=== PATIENT | female | born 1980 | race Caucasian/White ===

== ENCOUNTER 2019-01-27 00:39 | Outpatient (CLI) | payer BC ==
[~2019-01-27] VITALS: Ht 175.3 cm; Wt 78.2 kg
[2019-01-27 01:12] VITALS: BP 111/63
== END 2019-01-27 01:55 | disposition home or self-care (01) ==
LOC: LDOP 00:39
PROVIDERS: ATTEND Obstetrics & Gynecology
DX: O09.523 Supervision of elderly multigravida, third trimester (principal); O62.9 Abnormality of forces of labor, unspecified; Z3A.40 40 weeks gestation of pregnancy
CPT/HCPCS: 59025; 82962; 99201; G0463

== ENCOUNTER 2019-01-27 08:05 | Inpatient (IN) | payer BC ==
[~2019-01-27] VITALS: Ht 175.3 cm; Wt 78.2 kg
[2019-01-27] MEDS ORDERED: NEWBORN KIT ONE (08:09)
[2019-01-27] MEDS ORDERED: MISOPROSTOL 200 MCG TABLET ONE (08:09)
[2019-01-27] MEDS ORDERED: OXYTOCIN 10 UNITS/ML, 1ML ONE (08:09)
[2019-01-27] MEDS ORDERED: OXYTOCIN 30U/ 0.9% NaCL 500ML 500 ML ONE ×2 (08:14→09:50)
[2019-01-27] MEDS ORDERED: OXYTOCIN 30U/ 0.9% NaCL 500ML 500 ML IV ONE (08:17)
[2019-01-27] MEDS ORDERED: LACTATED RINGERS 1,000 ML IV SCH (08:17)
[2019-01-27] MEDS ORDERED: D5%-LACTATED RINGERS 1,000 ML IV SCH (08:17)
[2019-01-27] MEDS ORDERED: TERBUTALINE 1 MG/ML, 1ML IVPush PRN (08:30)
[2019-01-27] MEDS ORDERED: TERBUTALINE 1 MG/ML, 1ML SQ PRN (08:30)
[2019-01-27 08:45] LABS: BASOPHILS # (AUTO) 0.04 x10^3/uL (0-0.1); BASOPHILS % (AUTO) 1 % (0-1); EOSINOPHILS # (AUTO) 0.01 x10^3/uL (0-0.4); EOSINOPHILS % (AUTO) 0 % (1-7); LYMPHOCYTES # (AUTO) 0.73 x10^3/uL (1-3.4); LYMPHOCYTES % (AUTO) 9 % (22-44); MD NO; MEAN CORPUSCULAR HEMOGLOBIN 30.9 pg (27.0-34.8); MEAN CORPUSCULAR HGB CONC 33.5 g/dL (32.4-35.8); MEAN CORPUSCULAR VOLUME 92.2 fL (80-100); MEAN PLATELET VOLUME 6.9 fL (7.4-10.4); MONOCYTES # (AUTO) 0.65 x10^3/uL (0.2-0.8); MONOCYTES % (AUTO) 8 % (2-9); NEUTROPHILS # (AUTO) 6.65 x10^3/uL (1.8-6.8); NEUTROPHILS % (AUTO) 82 % (42-75); PLATELET COUNT 204 x10^3/uL (130-400); RED CELL DISTRIBUTION WIDTH 14.3 % (9.6-15.2)
[2019-01-27] MEDS: OXYTOCIN 30U/ 0.9% NaCL 500ML 500 ML IV SCH ×2 (08:49→18:36)
[2019-01-27] MEDS ORDERED: OXYcodone/APAP 5/325MG TABLET PO PRN ×2 (09:00)
[2019-01-27] MEDS: PRENATAL VIT/IRON/FA 1 EACH TABLET PO SCH (09:00)
[2019-01-27] MEDS ORDERED: CALCIUM CARBONATE 500 MG TAB.CHEW PO PRN (09:00)
[2019-01-27] MEDS ORDERED: DOCUSATE 100 MG CAPSULE PO PRN (09:00)
[2019-01-27] MEDS ORDERED: SIMETHICONE 80 MG CHEW TAB PO PRN (09:00)
[2019-01-27] MEDS ORDERED: ACETAMINOPHEN 325 MG TABLET PO PRN (09:00)
[2019-01-27] MEDS ORDERED: MISOPROSTOL 200 MCG TABLET PR PRN (09:00)
[2019-01-27] MEDS ORDERED: IBUPROFEN 600 MG TABLET PO PRN (09:00)
[2019-01-27] MEDS ORDERED: ONDANSETRON 2MG/ML, 2ML IV PRN (09:00)
[2019-01-27] MEDS ORDERED: OXYTOCIN 10 UNITS/ML, 1ML IM ONE (10:00)
[2019-01-27 10:57] VITALS: BP 110/73
[2019-01-27 16:10] VITALS: BP 112/75
[2019-01-27 16:21] LABS: BASOPHILS # (AUTO) 0.03 x10^3/uL (0-0.1); BASOPHILS % (AUTO) 0 % (0-1); EOSINOPHILS % (AUTO) 0 % (1-7); LYMPHOCYTES # (AUTO) 1.08 x10^3/uL (1-3.4); LYMPHOCYTES % (AUTO) 12 % (22-44); MD NO; MEAN CORPUSCULAR HEMOGLOBIN 31.1 pg (27.0-34.8); MEAN CORPUSCULAR HGB CONC 33.4 g/dL (32.4-35.8); MEAN CORPUSCULAR VOLUME 93.2 fL (80-100); MONOCYTES # (AUTO) 0.51 x10^3/uL (0.2-0.8); MONOCYTES % (AUTO) 6 % (2-9); NEUTROPHILS # (AUTO) 7.67 x10^3/uL (1.8-6.8); NEUTROPHILS % (AUTO) 83 % (42-75); PLATELET COUNT 233 x10^3/uL (130-400); RED BLOOD COUNT 3.87 x10^6/uL (3.82-5.3); RED CELL DISTRIBUTION WIDTH 14.1 % (9.6-15.2)
[2019-01-27 20:01] VITALS: BP 116/78
[2019-01-28 01:33] VITALS: BP 120/62
[2019-01-28] MEDS: OXYTOCIN 30U/ 0.9% NaCL 500ML 500 ML IV SCH (03:44)
[2019-01-28 03:54] VITALS: BP 100/67
[2019-01-28] MEDS: PRENATAL VIT/IRON/FA 1 EACH TABLET PO SCH (07:34)
[2019-01-28 08:05] VITALS: BP 105/71
[2019-01-28] MEDS ORDERED: DIPH,PERTUSS(ACELL),TET VAC/PF NC IM-VACC ONE (11:37)
== END 2019-01-28 12:41 | disposition home or self-care (01) | DRG 807 ==
LOC: LDOP 08:05 → LDIP 08:13 → 2NW 10:06
PROVIDERS: ADMIT Obstetrics & Gynecology; ATTEND Obstetrics & Gynecology
PROC: 10E0XZZ Delivery of Products of Conception, External Approach (ICD-10-PCS; principal; 2019-01-27)
PROC: 0UQMXZZ Repair Vulva, External Approach (ICD-10-PCS; 2019-01-27)
DX: O62.3 Precipitate labor (principal); Z37.0 Single live birth; Z3A.40 40 weeks gestation of pregnancy; O71.82 Other specified trauma to perineum and vulva
CPT/HCPCS: 36415; 85025; 86850; 86900; G0378; J2590

== ENCOUNTER → 2019-03-21 | Outpatient (CLI) | payer BC ==
[2019-03-19 10:11] LABS: BASOPHILS # (AUTO) 0.07 x10^3/uL (0-0.1); BASOPHILS % (AUTO) 1 % (0-1); EOSINOPHILS # (AUTO) 0.12 x10^3/uL (0-0.4); EOSINOPHILS % (AUTO) 3 % (1-7); LYMPHOCYTES % (AUTO) 37 % (22-44); MD NO; MEAN CORPUSCULAR HEMOGLOBIN 29.7 pg (27.0-34.8); MEAN CORPUSCULAR HGB CONC 33.4 g/dL (32.4-35.8); MEAN PLATELET VOLUME 6.3 fL (7.4-10.4); MONOCYTES # (AUTO) 0.31 x10^3/uL (0.2-0.8); MONOCYTES % (AUTO) 6 % (2-9); NEUTROPHILS # (AUTO) 2.61 x10^3/uL (1.8-6.8); NEUTROPHILS % (AUTO) 53 % (42-75); PLATELET COUNT 306 x10^3/uL (130-400); RED BLOOD COUNT 4.72 x10^6/uL (3.82-5.3); RED CELL DISTRIBUTION WIDTH 13.1 % (9.6-15.2)
[~2019-03-21] VITALS: Ht 175.3 cm; Wt 67.3 kg
[~2019-03-21] MED LIST: ACETAMINOPHEN 325 MG TABLET PO PRN; ACETAMINOPHEN 500 MG TABLET PO ONE; BUPIVACAINE/PF-EPI 0.25% 1:200K ONE; CEFAZOLIN 1,000 MG ONE; DEXAMETHASONE 4 MG/ML, 1ML ONE; ESCI20TA10 PO; FENTANYL PF 100 MCG/2ML IV PRN; FENTANYL PF 250 MCG/5ML ONE; GABAPENTIN 300 MG CAPSULE PO ONE; GLYCOPYRROLATE 0.2MG/1ML, 5ML ONE; HALOPERIDOL 5 MG/ML IV PRN; HYDROmorphone 2 MG/ML, 1ML IVPush PRN; LABETALOL 5MG/ML, 20ML IV PRN; LACTATED RINGERS 1,000 ML IV SCH; LIDOCAINE-MPF 1%, 2ML ONE; MEPERIDINE/PF 25MG/ML,1ML IVPush PRN; MIDAZOLAM 1 MG/ML, 2ML ONE; MORPHINE SULFATE 4 MG/ML, 1ML IVPush PRN; NEOSTIGMINE 1 MG/ML, 10ML ONE; ONDANSETRON 2MG/ML, 2ML ONE; OXYcodone 5 MG/5 ML ORAL.SOL UDC PO PRN; PNV1TABL11 PO; PROMETHAZINE 25 MG/ML, 1ML IV PRN; PROPOFOL 10 MG/ML, 20ML ONE; ROCURONIUM 10MG/ML,5ML ONE; SCOPOLAMINE PATCH, 1.5MG PATCH.TD72 TD ONE; SILVER NITRATE STICK TP ONE; hydrALAzine 20 MG/ML, 1ML IV PRN
[2019-03-21 06:22] VITALS: BP 108/73
== END | disposition home or self-care (01) ==
LOC: OUT 05:38 → EDSTATUS 07:30 → MERGE 07:30 → OUT 08:00
PROVIDERS: ATTEND Obstetrics & Gynecology
DX: Z30.2 Encounter for sterilization (principal); Z53.8 Procedure and treatment not carried out for other reasons; F32.9 Major depressive disorder, single episode, unspecified; F41.9 Anxiety disorder, unspecified; Z79.899 Other long term (current) drug therapy; Z88.6 Allergy status to analgesic agent; Z98.890 Other specified postprocedural states
CPT/HCPCS: 36415; 84703; 85025; J0690; J1100; J2405; J2704; J2710; J2250; J3010

== ENCOUNTER 2019-05-16 10:56 | Outpatient (CLI) | payer BC ==
[~2019-05-16 10:56] MED LIST changes: -ACETAMINOPHEN 325 MG TABLET PO PRN; -ACETAMINOPHEN 500 MG TABLET PO ONE; -BUPIVACAINE/PF-EPI 0.25% 1:200K ONE; -CEFAZOLIN 1,000 MG ONE; -DEXAMETHASONE 4 MG/ML, 1ML ONE; -FENTANYL PF 100 MCG/2ML IV PRN; -FENTANYL PF 250 MCG/5ML ONE; -GABAPENTIN 300 MG CAPSULE PO ONE; -GLYCOPYRROLATE 0.2MG/1ML, 5ML ONE; -HALOPERIDOL 5 MG/ML IV PRN; -HYDROmorphone 2 MG/ML, 1ML IVPush PRN; -LABETALOL 5MG/ML, 20ML IV PRN; -LACTATED RINGERS 1,000 ML IV SCH; -LIDOCAINE-MPF 1%, 2ML ONE; -MEPERIDINE/PF 25MG/ML,1ML IVPush PRN; -MIDAZOLAM 1 MG/ML, 2ML ONE; -MORPHINE SULFATE 4 MG/ML, 1ML IVPush PRN; -NEOSTIGMINE 1 MG/ML, 10ML ONE; -ONDANSETRON 2MG/ML, 2ML ONE; -OXYcodone 5 MG/5 ML ORAL.SOL UDC PO PRN; -PROMETHAZINE 25 MG/ML, 1ML IV PRN; -PROPOFOL 10 MG/ML, 20ML ONE; -ROCURONIUM 10MG/ML,5ML ONE; -SCOPOLAMINE PATCH, 1.5MG PATCH.TD72 TD ONE; -SILVER NITRATE STICK TP ONE; -hydrALAzine 20 MG/ML, 1ML IV PRN
[2019-05-16 12:03] LABS: BASOPHILS # (AUTO) 0.04 x10^3/uL (0-0.1); BASOPHILS % (AUTO) 1 % (0-1); EOSINOPHILS # (AUTO) 0.15 x10^3/uL (0-0.4); EOSINOPHILS % (AUTO) 2 % (1-7); LYMPHOCYTES # (AUTO) 1.84 x10^3/uL (1-3.4); LYMPHOCYTES % (AUTO) 27 % (22-44); MD NO; MEAN CORPUSCULAR HEMOGLOBIN 29.3 pg (27.0-34.8); MEAN CORPUSCULAR HGB CONC 33.5 g/dL (32.4-35.8); MEAN CORPUSCULAR VOLUME 87.4 fL (80-100); MEAN PLATELET VOLUME 6.6 fL (7.4-10.4); MONOCYTES % (AUTO) 7 % (2-9); NEUTROPHILS # (AUTO) 4.31 x10^3/uL (1.8-6.8); NEUTROPHILS % (AUTO) 63 % (42-75); PLATELET COUNT 349 x10^3/uL (130-400); RED BLOOD COUNT 4.55 x10^6/uL (3.82-5.3); RED CELL DISTRIBUTION WIDTH 14.5 % (9.6-15.2)
== END 2019-05-16 23:59 | disposition home or self-care (01) ==
LOC: STAR 10:56
PROVIDERS: ATTEND Obstetrics & Gynecology
DX: Z01.818 Encounter for other preprocedural examination (principal)
CPT/HCPCS: 36415; 84703; 85025

== ENCOUNTER 2019-05-23 05:54 | Day surgery (SDC) | payer BC ==
[~2019-05-23] VITALS: Ht 175.3 cm; Wt 67.4 kg
[2019-05-23 06:17] VITALS: BP 96/69
[2019-05-23] MEDS ORDERED: LACTATED RINGERS 1,000 ML IV SCH (06:23)
[2019-05-23] MEDS ORDERED: LIDOCAINE-MPF 1%, 2ML ONE (06:27)
[2019-05-23 06:35] LABS: HCG UR SG 1.026 (1.003-1.030)
[2019-05-23] MEDS ORDERED: BUPIVACAINE/PF 0.25% ONE (06:56)
[2019-05-23] MEDS ORDERED: EPINEPHRINE 1 MG/ML, 1ML ONE (06:56)
[2019-05-23] MEDS ORDERED: MIDAZOLAM 1 MG/ML, 2ML ONE (07:19)
[2019-05-23] MEDS ORDERED: FENTANYL PF 250 MCG/5ML ONE (07:19)
[2019-05-23] MEDS ORDERED: PROPOFOL 10 MG/ML, 20ML ONE (07:51)
[2019-05-23] MEDS ORDERED: PROPOFOL 50 ML ONE (07:51)
[2019-05-23] MEDS ORDERED: NEOSTIGMINE 1 MG/ML, 10ML ONE (07:51)
[2019-05-23] MEDS ORDERED: DEXAMETHASONE 4 MG/ML, 1ML ONE (07:51)
[2019-05-23] MEDS ORDERED: ROCURONIUM 10MG/ML,5ML ONE (07:51)
[2019-05-23] MEDS ORDERED: SUCCINYLCHOLINE 20 MG/ML, 10ML ONE (07:51)
[2019-05-23] MEDS ORDERED: CEFAZOLIN 1,000 MG ONE (07:51)
[2019-05-23] MEDS ORDERED: GLYCOPYRROLATE 0.2MG/1ML, 5ML ONE (07:51)
[2019-05-23] MEDS ORDERED: ONDANSETRON 2MG/ML, 2ML ONE (07:51)
[2019-05-23] MEDS ORDERED: DIAZEPAM 5 MG/ML, 2ML IVPush PRN (08:00)
[2019-05-23] MEDS ORDERED: PROMETHAZINE 25 MG/ML, 1ML IV PRN (08:00)
[2019-05-23] MEDS ORDERED: PROMETHAZINE 25 MG SUPP PR PRN (08:00)
[2019-05-23] MEDS ORDERED: FENTANYL PF 100 MCG/2ML IV PRN (08:00)
[2019-05-23] MEDS ORDERED: ACETAMINOPHEN 325 MG TABLET PO PRN (08:00)
[2019-05-23] MEDS ORDERED: ONDANSETRON 2MG/ML, 2ML IV PRN (08:00)
[2019-05-23] MEDS ORDERED: ONDANSETRON ODT 8 MG PO PRN (08:00)
[2019-05-23] MEDS ORDERED: LORazepam 2 MG/ML, 1ML IVPush PRN (08:00)
[2019-05-23] MEDS ORDERED: HYDROmorphone 2 MG/ML, 1ML IVPush PRN (08:00)
[2019-05-23] MEDS ORDERED: OXYcodone 5 MG/5 ML ORAL.SOL UDC PO PRN (08:00)
[2019-05-23] MEDS ORDERED: SUGAMMADEX 200 MG/2 ML IVPush ONE (08:04)
[2019-05-23] MEDS ORDERED: ALBUTEROL/IPRATROPIUM 2.5MG/0.5MG, 3 ML NPPB PRN (09:30)
== END 2019-05-23 11:05 | disposition home or self-care (01) ==
LOC: OUT 05:54
PROVIDERS: ATTEND Obstetrics & Gynecology
DX: Z30.2 Encounter for sterilization (principal); F32.9 Major depressive disorder, single episode, unspecified; F41.9 Anxiety disorder, unspecified; Z79.899 Other long term (current) drug therapy; Z88.8 Allergy status to other drugs, medicaments and biological substances; Z90.79 Acquired absence of other genital organ(s); Z98.890 Other specified postprocedural states
CPT/HCPCS: 58670; 81025; 88302; 94640; J0171; J0690; J1100; J2250; J2405; J2704; J3010; J3490; J2710; J0330